=== PATIENT | female | born 1985 | race Caucasian/White ===

== ENCOUNTER 2016-08-21 21:16 | Observation (INO) | payer BC ==
[2016-08-21 22:31] LABS: URINE BILIRUBIN NEGATIVE (NEG); URINE BLOOD NEGATIVE (NEG); URINE GLUCOSE (UA) NEGATIVE (NEG); URINE KETONE NEGATIVE (NEG); URINE LEUKOCYTE ESTERASE NEGATIVE (NEG); URINE NITRITE NEGATIVE (NEG); URINE PROTEIN NEGATIVE (NEG)
[2016-08-21 22:35] LABS: URINE APPEARANCE CLEAR; URINE COLOR PALE YELLOW
[2016-08-21 22:39] LABS: URINE EPITHELIAL CELLS 0-5 /[HPF] (0-10); URINE RBC 0 /[HPF] (0-5); URINE WBC 0-1 /[HPF] (0-5)
== END 2016-08-21 22:48 ==
LOC: LDR 21:16
PROVIDERS: ADMIT Obstetrics & Gynecology
DX: O26.92 Pregnancy related conditions, unspecified, second trimester (principal); Z3A.24 24 weeks gestation of pregnancy; R32 Unspecified urinary incontinence